=== PATIENT | male | born 1955 | race Caucasian/White ===

== ENCOUNTER 2016-11-22 20:25 | Inpatient (IN) | payer OTHER ==
[~2016-11-22] VITALS: Ht 167.6 cm; Wt 72.9 kg
[2016-11-22 21:38] LABS: BASOPHILS # (AUTO) 0.1 10^3/uL (0.0-0.1); BASOPHILS % (AUTO) 1 % (0-10); EOSINOPHILS # (AUTO) 0.3 10^3/uL (0.0-0.3); EOSINOPHILS % (AUTO) 3 % (0-10); LYMPHOCYTES # (AUTO) 1.6 X 10^3 (1.0-4.0); LYMPHOCYTES % (AUTO) 14 % (12-44); MEAN CORPUSCULAR HEMOGLOBIN 16 PG (25-34); MEAN CORPUSCULAR HGB CONC 27 G/DL (32-36); MEAN CORPUSCULAR VOLUME 58 FL (80-99); MEAN PLATELET VOLUME 9.5 FL (7.4-10.4); MONOCYTES # (AUTO) 0.9 X 10^3 (0.0-1.0); MONOCYTES % (AUTO) 8 % (0-12); NEUTROPHILS # (AUTO) 8.8 X 10^3 (1.8-7.8); NEUTROPHILS % (AUTO) 76 % (42-75); PLATELET COUNT 453 10^3/uL (130-400); RED BLOOD COUNT 3.63 10^6/uL (4.35-5.85); RED CELL DISTRIBUTION WIDTH 21.6 % (10.0-14.5); WHITE BLOOD COUNT 11.7 10^3/uL (4.3-11.0)
--- NOTE | 2016-11-22 21:44 | Diagnostic Imaging Report ---
INDICATION: Difficulty breathing, congestion COMPARISON: None available. TECHNIQUE: Frontal and lateral radiographs of the chest dated November 22, 2016 FINDINGS: The cardiac silhouette is within normal limits. No significant pulmonary vascular congestion. Background interstitial changes are again identified with scarring emphysematous changes within the upper lungs. Mild biapical pleural parenchymal scarring, focal airspace opacities seen within the left lower lobe. The lungs are mild hyperinflated with prominence of anterior clear space. No significant pleural effusion. No pneumothorax. Scattered osseous degenerative changes without acute osseous abnormality. IMPRESSION: Background chronic obstructive pulmonary disease with associated superimposed pneumonia within the left lower lobe. Recommend followup radiographs in 10 to 14 days after appropriate therapy to ensure resolution. Dictated by: Dictated on workstation # [id number]
[2016-11-22 21:57] LABS: ALANINE AMINOTRANSFERASE 13 U/L (0-55); ALBUMIN 3.9 G/DL (3.2-4.5); ANION GAP 12 MMOL/L (5-14); ASPARTATE AMINO TRANSFERASE 16 U/L (5-34); BILIRUBIN,TOTAL 0.3 MG/DL (0.1-1.0); BLOOD UREA NITROGEN 13 MG/DL (7-18); BUN/CREATININE RATIO 13; CALCIUM 8.9 MG/DL (8.5-10.1); CARBON DIOXIDE 20 MMOL/L (21-32); CHLORIDE 108 MMOL/L (98-107); GFR ESTIMATED > 60; GLUCOSE 109 MG/DL (70-105); POTASSIUM 3.7 MMOL/L (3.6-5.0); SODIUM 140 MMOL/L (135-145); TOTAL PROTEIN 7.2 G/DL (6.4-8.2)
[2016-11-22] MEDS ORDERED: PIPERACILLIN SODIUM/TAZOBACTAM 4.5 GM in NORMAL SALINE (BAXTER MINI) 100 ML IV ONE (22:00)
[2016-11-22 22:13] LABS: INR 1.1 (0.8-1.4); PROTHROMBIN TIME PATIENT 14.1 SEC (12.2-14.7)
[2016-11-22] MEDS ORDERED: ACETAMINOPHEN 500 MG TAB (TYLENOL) PO ONE (22:15)
--- NOTE | 2016-11-22 22:16 | ED General ---
General Chief Complaint: Respiratory Problems Stated Complaint: DIFF BREATHING/COUGH/COPD Nursing Triage Note: Pt reports feeling soa, congestion, cough, fever worsening since . had pneumonia approx 1 month ago. former smoker quit one year ago. Nursing Sepsis Screen: Possible Sepsis Risk Source of Information: Patient, Family Exam Limitations: No Limitations History of Present Illness Time Seen by Provider: 21:13 Initial Comments This 61-year-old gentleman who is in town for his mother's presents to the emergency room with myalgia, fever, cough, and dyspnea since . He reports having pneumonia about one month ago and completed treatment. He is a former smoker who quit about one year ago. He denies any nausea, vomiting, diarrhea, urinary changes, hematochezia, melena, or other acute problems. He was noted on CBC to be severely anemic. Patient has COPD. His only blood thinning medication is aspirin. 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 (Reported ) Aspirin 81 Mg Tab.chew 81 MG PO DAILY (Reported) Enalapril Maleate 20 Mg Tablet 20 MG PO HS (Reported) Famotidine 40 Mg Tablet 40 MG PO HS (Reported) Fexofenadine HCl 180 Mg Tablet 180 MG PO DAILY (Reported) Fluticasone/Salmeterol 1 Each Blst.w.dev 1 EACH IH BID (Reported) Guaifenesin 600 Mg Tab.er.12h 600 MG PO BID (Reported) Ibuprofen 200 Mg Capsule 200 MG PO Q6H PRN PRN PAIN (Reported) Omeprazole 40 Mg Capsule.dr 40 MG PO AC (Reported) Simvastatin 10 Mg Tablet 10 MG PO HS (Reported) Constitutional: see HPI EENTM: no symptoms reported Respiratory: see HPI Cardiovascular: no symptoms reported Gastrointestinal: no symptoms reported Genitourinary: no symptoms reported Musculoskeletal: see HPI muscle pain Skin: no symptoms reported Psychiatric/Neurological: No Symptoms Reported Hematologic/Lymphatic: No Symptoms Reported Past Dyngggf-Zmiwla-Sxboec Hx Patient Social History Alcohol Use: Denies Use Recreational Drug Use: Yes (marijuana) Drug of Choice: marijuana Smoking Status: Former Smoker Recent Foreign Travel: No Contact w/Someone Who Travel: No Recent Infectious Disease Expo: No Recent Hopitalizations: No Immunizations Up To Date Tetanus Booster (TDap): Less than 5yrs Date of Pneumonia Vaccine: Sep 23, 2016 Date of Influenza Vaccine: Jul 24, 2016 Seasonal Allergies Seasonal Allergies: No Surgeries HX Surgeries: Yes (cheek bone repair, hernia repair) Respiratory Hx Respiratory Disorders: Yes Respiratory Disorders: Pneumonia, COPD Cardiovascular Hx Cardiac Disorders: Yes Cardiac Disorders: Hypertension Neurological Hx Neurological Disorders: No Reproductive System Hx Reproductive Disorders: No Genitourinary Hx Genitourinary Disorders: No Gastrointestinal Hx Gastrointestinal Disorders: No Musculoskeletal Hx Musculoskeletal Disorders: No HEENT HX ENT Disorders: No Cancer Hx Cancer: No Psychosocial Hx Psychiatric Problems: No Integumentary HX Skin/Integumentary Disorder: No Blood Transfusions Hx Blood Disorders: No Physical Exam Vital Signs Vital Sign - Last 12Hours 11/22/16 11/22/16 11/23/16 11/23/16 20:51 23:00 03:00 03:41 Temp 100.5 Pulse 86 Resp 32 B/P 169/80 Pulse Ox 98 O2 Delivery Room Air O2 Flow Rate 15.00 FiO2 97 Capillary Refill : Less Than 3 Seconds General Appearance: No Apparent Distress WD/WN HEENT: PERRL/EOMI Normal ENT Inspection Pharynx Normal Neck: Normal Inspection Respiratory: Lungs Clear Normal Breath Sounds No Accessory Muscle Use No Respiratory Distress Cardiovascular: Regular Rate, Rhythm No Edema No Murmur Gastrointestinal: Normal Bowel Sounds Non Tender Soft Extremity: Normal Inspection No Pedal Edema Neurologic/Psychiatric: Alert Oriented x3 No Motor/Sensory Deficits 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 Norm as Tested Skin: Normal Color Warm/Dry Progress/Results/Core Measures Results/Orders Lab Results Laboratory Tests Test 11/22/16 21:28 11/22/16 22:51 11/23/16 02:54 11/23/16 03:30 Range/Units Activated Partial Thromboplast Time 38 H 24-35 SEC Alanine Aminotransferase (ALT/SGPT) 13 0-55 U/L Albumin 3.9 3.2-4.5 G/DL Alkaline Phosphatase 74 40-136 U/L Anion Gap 12 5-14 MMOL/L Aspartate Amino Transf (AST/SGOT) 16 5-34 U/L BUN/Creatinine Ratio 13 Basophils # (Auto) 0.1 0.0-0.1 10^3/uL Basophils (%) (Auto) 1 0-10 % Blood Urea Nitrogen 13 7-18 MG/DL Calcium Level 8.9 8.5-10.1 MG/DL Carbon Dioxide Level 20 L 21-32 MMOL/L Chloride Level 108 H 98-107 MMOL/L Creatinine 1.00 0.60-1.30 MG/DL Eosinophils # (Auto) 0.3 0.0-0.3 10^3/uL Eosinophils (%) (Auto) 3 0-10 % Estimat Glomerular Filtration Rate > 60 Glucose Level 109 H 70-105 MG/DL Hematocrit 21 L 40-54 % Hemoglobin 5.8 *L 13.3-17.7 G/DL INR Comment 1.1 0.8-1.4 Lactic Acid Level 1.4 0.5-2.0 MMOL/L Lymphocytes # (Auto) 1.6 1.0-4.0 X 10^3 Lymphocytes (%) (Auto) 14 12-44 % Mean Corpuscular Hemoglobin 16 L 25-34 PG Mean Corpuscular Hemoglobin Concent 27 L 32-36 G/DL Mean Corpuscular Volume 58 L 80-99 FL Mean Platelet Volume 9.5 7.4-10.4 FL Monocytes # (Auto) 0.9 0.0-1.0 X 10^3 Monocytes (%) (Auto) 8 0-12 % Neutrophils # (Auto) 8.8 H 1.8-7.8 X 10^3 Neutrophils (%) (Auto) 76 H 42-75 % Platelet Count 453 H 130-400 10^3/uL Potassium Level 3.7 3.6-5.0 MMOL/L Prothrombin Time 14.1 12.2-14.7 SEC Red Blood Count 3.63 L 4.35-5.85 10^6/uL Red Cell Distribution Width 21.6 H 10.0-14.5 % Sodium Level 140 135-145 MMOL/L Total Bilirubin 0.3 0.1-1.0 MG/DL Total Protein 7.2 6.4-8.2 G/DL White Blood Count 11.7 H 5.1 4.3-11.0 X 10^3 Urine Bacteria NONE /HPF Urine Bilirubin NEGATIVE NEGATIVE Urine Casts NONE /LPF Urine Clarity CLEAR Urine Color YELLOW Urine Crystals NONE /LPF Urine Culture Indicated NO Urine Glucose (UA) NEGATIVE NEGATIVE Urine Ketones NEGATIVE NEGATIVE Urine Leukocyte Esterase NEGATIVE NEGATIVE Urine Mucus NEGATIVE /LPF Urine Nitrite NEGATIVE NEGATIVE Urine Protein NEGATIVE NEGATIVE Urine RBC NONE /HPF Urine RBC (Auto) NEGATIVE NEGATIVE Urine Specific [place] 1.010 L 1.016-1.022 Urine Squamous Epithelial Cells RARE /HPF Urine Urobilinogen NORMAL NORMAL MG/DL Urine WBC NONE /HPF Urine pH 7 5-9 Iggy Test YES-POS Arterial Blood Base Excess -7.6 L -2.5-2.5 MMOL/L Arterial Blood HCO3 17 *L 23-27 MMOL/L Arterial Blood Oxygen Saturation 99 94-100 % Arterial Blood Partial Pressure CO2 31 L 35-45 MMHG Arterial Blood Partial Pressure O2 176 H 79-93 MMHG Arterial Blood Total CO2 17.8 L 21.0-31.0 MMOL/L Arterial Blood pH 7.36 L 7.37-7.43 Blood Gas Inspired Oxygen 15L Blood Gas Patient Temperature 99.2 Blood Gas Puncture Site RIGHT RADIAL Blood Gas Ventilator Setting NO Test 11/23/16 04:55 Range/Units Anion Gap 10 5-14 MMOL/L BUN/Creatinine Ratio 14 Basophils # (Auto) 0.0 0.0-0.1 10^3/uL Basophils (%) (Auto) 0 0-10 % Blood Urea Nitrogen 14 7-18 MG/DL Calcium Level 8.4 L 8.5-10.1 MG/DL Carbon Dioxide Level 19 L 21-32 MMOL/L Chloride Level 112 H 98-107 MMOL/L Creatinine 1.03 0.60-1.30 MG/DL Eosinophils # (Auto) 0.0 0.0-0.3 10^3/uL Eosinophils (%) (Auto) 0 0-10 % Estimat Glomerular Filtration Rate > 60 Glucose Level 97 70-105 MG/DL Hematocrit 22 L 40-54 % Hemoglobin 6.3 *L 13.3-17.7 G/DL Lymphocytes # (Auto) 0.4 L 1.0-4.0 X 10^3 Lymphocytes (%) (Auto) 4 L 12-44 % Mean Corpuscular Hemoglobin 18 L 25-34 PG Mean Corpuscular Hemoglobin Concent 29 L 32-36 G/DL Mean Corpuscular Volume 62 L 80-99 FL Mean Platelet Volume 9.8 7.4-10.4 FL Monocytes # (Auto) 0.1 0.0-1.0 X 10^3 Monocytes (%) (Auto) 1 0-12 % Neutrophils # (Auto) 8.5 H 1.8-7.8 X 10^3 Neutrophils (%) (Auto) 94 H 42-75 % Platelet Count 354 130-400 10^3/uL Potassium Level 3.7 3.6-5.0 MMOL/L Red Blood Count 3.58 L 4.35-5.85 10^6/uL Red Cell Distribution Width 24.7 H 10.0-14.5 % Sodium Level 141 135-145 MMOL/L White Blood Count 9.0 4.3-11.0 10^3/uL My Orders Orders-KAYLEN MARTINEZ MD Cbc With Automated Diff (11/22/16 21:13) Comprehensive Metabolic Panel (11/22/16 21:13) Chest Pa/Lat (2 View) (11/22/16 21:13) Red Cells Leukocytes Reduced (11/22/16 21:52) Type And Screen (11/22/16 21:52) Lactic Acid Analyzer (11/22/16 21:56) Blood Culture (11/22/16 21:56) Sputum Culture (11/22/16 21:56) Ua Culture If Indicated (11/22/16 21:56) Protime With Inr (11/22/16 21:56) Partial Thromboplastin Time (11/22/16 21:56) O2 (11/22/16 21:56) Saline Lock/Iv-Start (11/22/16 21:56) Saline Lock/Iv-Start (11/22/16 21:56) Piperacillin Sodium/Tazobactam (Zosyn Vi (11/22/16 22:00) Influenza A And B Antigens (11/22/16 21:57) Acetaminophen Tablet (Tylenol Tablet) (11/22/16 22:15) Medications Given in ED Current Medications Medications Dose Ordered Sig/Janeth Route Start Time Stop Time Status Last Admin Dose Admin Piperacillin Sod/ Tazobactam Sod/ Sodium Chloride 100 ml @ 200 mls/hr ONCE ONCE IV 11/22/16 22:00 11/22/16 22:30 DC 11/22/16 22:54 200 MLS/HR Vital Signs/I&O Vital Sign - Last 12Hours 11/22/16 11/22/16 11/22/16 11/22/16 20:51 22:58 23:00 23:10 Temp 100.5 101.0 100.5 Pulse 86 93 90 Resp 32 17 B/P 169/80 147/69 Pulse Ox 98 95 96 96 O2 Delivery Room Air Room Air 11/22/16 11/23/16 11/23/16 11/23/16 23:48 00:14 00:17 00:17 Temp 100.3 99.1 99.1 Pulse 78 74 74 Resp 24 B/P 124/63 124/63 Pulse Ox 95 95 O2 Delivery Room Air 11/23/16 11/23/16 11/23/16 11/23/16 00:32 00:32 00:32 01:02 Temp 99.6 99.6 99.6 Pulse 79 79 79 84 Resp 24 24 B/P 108/55 108/55 108/55 Pulse Ox 94 94 94 O2 Delivery Room Air 11/23/16 11/23/16 11/23/16 11/23/16 02:31 02:31 03:00 03:10 Temp 99.2 99.2 102.1 Pulse 146 146 119 109 Resp 40 40 40 20 B/P 150/92 150/92 148/84 Pulse Ox 93 93 93 98 O2 Delivery Room Air Non Rebreather Nasal Cannula O2 Flow Rate 15.00 4.00 11/23/16 11/23/16 11/23/16 11/23/16 03:20 03:29 03:37 03:41 Temp 102.1 101.9 Pulse 106 Resp 20 B/P 120/79 Pulse Ox 98 96 O2 Delivery Nasal Cannula O2 Flow Rate 4.00 2.00 FiO2 97 11/23/16 11/23/16 11/23/16 11/23/16 04:06 04:10 04:50 06:30 Temp 100.1 100.1 100.3 99.9 Pulse 97 98 Resp 24 B/P 97/62 110/67 Pulse Ox 96 97 O2 Delivery Nasal Cannula Nasal Cannula O2 Flow Rate 4.00 4.00 11/23/16 11/23/16 07:00 07:03 Pulse 96 Pulse Ox 92 O2 Flow Rate 2.00 Blood Pressure Mean: 109 Progress Note : Progress Note Blood cultures and lactic acid were drawn. Antibiotic therapy was started with Zosyn for treatment of his left lower lobe pneumonia. 4 units of blood were cross matched and 2 were ordered for transfusion with 2 to hold. Cause of anemia is unknown but is likely related to chronic blood loss or related to iron deficiency given his stable vital signs and extremely low MCV (microcytic anemia). Iron studies were added to his blood work. ECG Initial ECG Impression Date: Nov 22, 2016 Initial ECG Impression Time: 21:25 Initial ECG Rate: 81 Initial ECG Rhythm: Normal Sinus Comment normal sinus rhythm with no ST elevation or depression. No abnormal intervals. LVH. Diagnostic Imaging Diagonstic Imaging: Xray Plain Films/CT/US/NM/MRI: chest Comments Chest x-ray viewed by me and report reviewed. See report below: NAME: [facility] REC#: [id number] PT STATUS: REG ER : 1955 PHYSICIAN: KAYLEN MARTINEZ MD ADMIT DATE: 11/22/16/ER Draft Date of Exam:11/22/16 CHEST PA/LAT (2 VIEW) INDICATION: Difficulty breathing, congestion COMPARISON: None available. TECHNIQUE: Frontal and lateral radiographs of the chest dated November 22, 2016 FINDINGS: The cardiac silhouette is within normal limits. No significant pulmonary vascular congestion. Background interstitial changes are again identified with scarring emphysematous changes within the upper lungs. Mild biapical pleural parenchymal scarring, focal airspace opacities seen within the left lower lobe. The lungs are mild hyperinflated with prominence of anterior clear space. No significant pleural effusion. No pneumothorax. Scattered osseous degenerative changes without acute osseous abnormality. IMPRESSION: Background chronic obstructive pulmonary disease with associated superimposed pneumonia within the left lower lobe. Recommend followup radiographs in 10 to 14 days after appropriate therapy to ensure resolution. Dictated on workstation # [id number] Dict: 11/22/16 2134 Trans: 11/22/16 2143 ROMY [id number] Interpreted by: JAMES NORTH MD Departure Communication Time/Spoke to Admitting Phy: 22:[address] Lin excepts and agrees with admission for treatment of pneumonia and severe anemia. The broad-spectrum antibiotics for healthcare associated pneumonia will be used since patient has had a recent pneumonia treated within the past 2 months. Transfusion of 2 units was 2 units to hold has been ordered. Hemoccult stools have also been ordered. Transfusion was felt appropriate given the patient's COPD and need for good oxygenation. Impression Impression: Primary Impression: Left lower lobe pneumonia Qualified Code: J18.1 - Lobar pneumonia, unspecified organism Additional Impression: Severe anemia Disposition: ADMITTED INPATIENT Condition: Improved Decision to Admit Reason: Admit from ER (General) Decision to Admit/Date: Nov 22, 2016 Time/Decision to Admit Time: 22:00 Departure-Patient Inst. Referrals: NO,LOCAL PHYSICIAN (PCP/Family) Primary Care Physician KAYLEN MARTINEZ MD Nov 22, 2016 22:16 KAYLEN MARTINEZ MD Nov 22, 2016 22:16
[2016-11-22 22:57] LABS: BILIRUBIN,URINE NEGATIVE (NEGATIVE); KETONES,URINE NEGATIVE (NEGATIVE); LEUKOCYTE ESTERASE ,URINE NEGATIVE (NEGATIVE); NITRITE,URINE NEGATIVE (NEGATIVE); PH,URINE 7 (5-9); PROTEIN,URINE NEGATIVE (NEGATIVE); UROBILINOGEN,URINE NORMAL (NORMAL)
[2016-11-22 23:10] VITALS: BP 147/69
[2016-11-22 23:25] LABS: SQUAMOUS EPITHELIAL CELL,UR RARE /HPF
[2016-11-22] MEDS ORDERED: ACETAMINOPHEN 500 MG TAB (TYLENOL) PO PRN (23:30)
[2016-11-22] MEDS ORDERED: VANCOMYCIN 1 GM/NS 250 ML IVPB IV SCH ×2 (23:30)
[2016-11-22] MEDS ORDERED: SODIUM CHLORIDE (ADD-VANTAGE) 0 ML ONE (23:34)
[2016-11-22] MEDS ORDERED: VANCOMYCIN 1 GM ADD-VANTAGE VIAL IV ONE (23:34)
[2016-11-22] MEDS ORDERED: NS IV 500 ML 500 ML IV ONE (23:45)
[2016-11-23] VITALS (20 sets, daily range): BP systolic 97–150; BP diastolic 55–92
[2016-11-23] MEDS: LEVOFLOXACIN 750 MG/150 ML D5W (PRE-MIX) IV SCH ×2 (01:31→23:19)
[2016-11-23] MEDS ORDERED: OMEP40CA36 PO (02:12)
[2016-11-23] MEDS ORDERED: SIMV10TA3 PO (02:12)
[2016-11-23] MEDS ORDERED: ASPI-999 PO (02:20)
[2016-11-23] MEDS ORDERED: ENAL20TA PO (02:20)
[2016-11-23] MEDS ORDERED: RT-ALBUINH IH (02:20)
[2016-11-23] MEDS ORDERED: FLUT1DIS26 IH (02:20)
[2016-11-23] MEDS ORDERED: FAMO40TA6 PO (02:20)
[2016-11-23] MEDS ORDERED: IBUP200C75 PO (02:23)
[2016-11-23] MEDS ORDERED: FEXO-46 PO (02:23)
[2016-11-23] MEDS ORDERED: GUAI600T43 PO (02:23)
[2016-11-23] MEDS ORDERED: RT-ALBUTEROL/IPRATROPIUM 3 ML (DUONEB) VIAL ONE (02:34)
[2016-11-23] MEDS ORDERED: FUROSEMIDE 40 MG/4 ML INJ (LASIX) IVP ONE (02:45)
[2016-11-23] MEDS ORDERED: RT-ALBUTEROL/IPRATROPIUM 3 ML (DUONEB) VIAL INH PRN (03:15)
[2016-11-23] MEDS ORDERED: PIPERACILLIN/TAZO 4.5 GM VIAL (ZOSYN) IV ONE (03:39)
[2016-11-23] MEDS ORDERED: NORMAL SALINE (BAXTER MINI) 100 ML IV ONE (03:39)
[2016-11-23 03:40] LABS: ABG BASE EXCESS -7.6 MMOL/L (-2.5-2.5); ABG OXYGEN SATURATION 99 % (94-100); ABG PCO2 31 MMHG (35-45); ABG PH 7.36 (7.37-7.43); ABG PO2 176 MMHG (79-93); ABG TCO2 17.8 MMOL/L (21.0-31.0)
[2016-11-23 03:45] LABS: ABG HCO3 17 MMOL/L (23-27); ALLENS TEST YES-POS
[2016-11-23] MEDS: RT-ALBUTEROL/IPRATROPIUM 3 ML (DUONEB) VIAL INH SCH ×6 (03:45→22:13)
[2016-11-23 03:46] LABS: PATIENT TEMP 99.2
[2016-11-23] MEDS: PIPER/TAZOB 4.5 GM/NS 50 ML IVPB IV SCH ×6 (04:04→20:56)
[2016-11-23] MEDS: ACETAMINOPHEN 325 MG TABLET/CAPLET (TYLENOL) PO PRN ×2 (04:06→08:00)
[2016-11-23] MEDS ORDERED: FUROSEMIDE 40 MG/4 ML INJ (LASIX) ONE ×2 (04:47→07:55)
[2016-11-23 05:33] LABS: BASOPHILS % (AUTO) 0 % (0-10); EOSINOPHILS % (AUTO) 0 % (0-10); LYMPHOCYTES # (AUTO) 0.4 X 10^3 (1.0-4.0); LYMPHOCYTES % (AUTO) 4 % (12-44); MEAN CORPUSCULAR HEMOGLOBIN 18 PG (25-34); MEAN CORPUSCULAR HGB CONC 29 G/DL (32-36); MEAN CORPUSCULAR VOLUME 62 FL (80-99); MEAN PLATELET VOLUME 9.8 FL (7.4-10.4); MONOCYTES # (AUTO) 0.1 X 10^3 (0.0-1.0); MONOCYTES % (AUTO) 1 % (0-12); NEUTROPHILS # (AUTO) 8.5 X 10^3 (1.8-7.8); NEUTROPHILS % (AUTO) 94 % (42-75); PLATELET COUNT 354 10^3/uL (130-400); RED BLOOD COUNT 3.58 10^6/uL (4.35-5.85); RED CELL DISTRIBUTION WIDTH 24.7 % (10.0-14.5)
[2016-11-23 05:46] LABS: ANION GAP 10 MMOL/L (5-14); BLOOD UREA NITROGEN 14 MG/DL (7-18); BUN/CREATININE RATIO 14; CALCIUM 8.4 MG/DL (8.5-10.1); CARBON DIOXIDE 19 MMOL/L (21-32); CHLORIDE 112 MMOL/L (98-107); CREATININE SERUM 1.03 MG/DL (0.60-1.30); GFR ESTIMATED > 60; GLUCOSE 97 MG/DL (70-105); POTASSIUM 3.7 MMOL/L (3.6-5.0); SODIUM 141 MMOL/L (135-145)
[2016-11-23] MEDS: VANCOMYCIN 1 GM/NS 250 ML IVPB IV SCH ×4 (08:01→21:27)
[2016-11-23] MEDS ORDERED: FUROSEMIDE 40 MG/4 ML INJ (LASIX) IVP NR (09:00)
[2016-11-23] MEDS ORDERED: GUAI-366 PO (09:42)
[2016-11-23] MEDS ORDERED: ASPI-983 PO (09:42)
[2016-11-23] MEDS ORDERED: IBUP-2055 PO (09:42)
[2016-11-23 12:57] LABS: %SAT TOTAL IRON BINDING CAPIC 1 % (15-50); TIBC <442 ug/dL (280-380)
--- NOTE | 2016-11-23 15:20 | History & Physical-Hospitalist ---
HPI History of Present Illness: HPI/Chief Complaint The patient is a 61-year-old white male who was admitted after he presented to the emergency room last night. His complaints were that of cough congestion shortness of breath and fever. He reported that he had had a pneumonia approximately one month ago. He is a stated to be a pack-a-day smoker who quit one year ago. He was in town for his mother's . History suggests that he has something of a bit vagabond as he apparently was last seen by in July somewhere in [place]. In addition to determining an apparent left lower lobe pneumonia he was found to have a hemoglobin of 5.8. He gives no history of GI bleeding, past history of anemia, or black stools. It was clear that the anemia was not helping his respiratory situation. Exam Limitations: no limitations Date Seen 11/23/16 Attending Physician Niels Craig MD PCP No,Local Physician Referring Physician Date of Admission Nov 22, 2016 at 22:12 Home Medications & Allergies Home Medications Reviewed patient Home Medication Reconciliation Form Allergies Coded Allergies: No Known Drug Allergies (Unverified , 11/22/16) Past Jalneet-Sjusai-Bqxhbn Hx Patient Social History Alcohol Use: Denies Use Recreational Drug Use: Yes (marijuana) Drug of Choice: marijuana Smoking Status: Former Smoker Physical Abuse Screen: No Sexual Abuse: No Recent Foreign Travel: No Contact w/other who traveled: No Recent Hopitalizations: No Recent Infectious Disease Expo: No Immunizations Up To Date Tetanus Booster (TDap): Less than 5yrs Date of Pneumonia Vaccine: Sep 23, 2016 Date of Influenza Vaccine: Jul 24, 2016 Seasonal Allergies Seasonal Allergies: No Surgeries HX Surgeries: Yes (cheek bone repair, hernia repair) Respiratory Hx Respiratory Disorders: Yes Cardiovascular Hx Cardiovascular Disorders: Yes Cardiac Disorders: Hypertension Neurological Hx Neurological Disorders: No Reproductive System Hx Reproductive Disorders: No Genitourinary Hx Genitourinary Disorders: No Gastrointestinal Hx Gastrointestinal Disorders: No Gastrointestinal Disorders: Hemorrhoids Musculoskeletal Hx Musculoskeletal Disorders: No HEENT HX ENT Disorders: No Cancer Hx Cancer: No Psychosocial Hx Psychiatric Problems: No Integumentary HX Skin/Integumentary Disorder: No Blood Transfusions Hx Blood Disorders: No Family Medical History Family Hx: Arthritis 19 MOTHER Diabetes mellitus G8 SISTER Myocardial infarction 19 FATHER Visual disorder G8 SISTER Review of Systems Constitutional: see HPI EENTM: no symptoms reported Respiratory: cough dyspnea on exertion phlegm short of breath wheezing Cardiovascular: no symptoms reported Gastrointestinal: no symptoms reported Genitourinary: no symptoms reported Musculoskeletal: no symptoms reported Skin: no symptoms reported Psychiatric/Neurological: No Symptoms Reported Physical Exam Physical Exam Vital Signs Capillary Refill : Less Than 3 Seconds General Appearance: Mild Distress Eyes: Bilateral Eye Normal Inspection HEENT: PERRL/EOMI Normal ENT Inspection Pharynx Normal Neck: Full Range of Motion Normal Inspection Non Tender Supple Carotid Bruit Respiratory: Decreased Breath Sounds Rhonci Gastrointestinal: Normal Bowel Sounds No Organomegaly No Pulsatile Mass Non Tender Soft Back: Normal Inspection No CVA Tenderness No Vertebral Tenderness Extremity: Normal Capillary Refill Normal Inspection Normal Range of Motion Non Tender No Calf Tenderness No Pedal Edema Skin: Normal Color Warm/Dry Lymphatic: No Adenopathy Results Results/Procedures Lab Assessment/Plan Admission Diagnosis 1.severe anemia, microcytic and suggestive of blood loss. 2.left lower lobe pneumonia. 3.COPD Assessment and Plan RBCs TO restore above 8 g of hemoglobin. Surgery consult. Antibiotics and pulmonary toilet Clinical Quality Measures DVT/VTE Risk/Contraindication: Risk Factor Score Per Nursin RFS Level Per Nursing on Admit: 4+=Very High NIELS CRAIG MD Nov 23, 2016 15:20 Skin: Normal Color Warm/Dry Lymphatic: No Adenopathy Results Results/Procedures Lab Laboratory Tests 11/22/16 21:28 11/23/16 03:30 11/23/16 04:55 Assessment/Plan Admission Diagnosis 1.severe anemia, microcytic and suggestive of blood loss. 2.left lower lobe pneumonia. 3.COPD Assessment and Plan RBCs TO restore above 8 g of hemoglobin. Surgery consult. Antibiotics and pulmonary toilet Clinical Quality Measures DVT/VTE Risk/Contraindication: Risk Factor Score Per Nursin RFS Level Per Nursing on Admit: 4+=Very High NIELS CRAIG MD Nov 23, 2016 15:20
[2016-11-23] MEDS ORDERED: GOLYTELY POWDER 4000 ML BTL PO ONE (16:15)
--- NOTE | 2016-11-23 17:09 | Consultation ---
History of Present Illness History of Present Illness Patient Consulted On(armaan/time) 11/23/16 17:03 Date of Admission History of Present Illness Consult from Dr. Lin for anemia. Patient is a 61 year old male who presented to ER not feeling well and having intermittent fever. Patient found to be anemic and left lower lobe pneumonia. Patient reports having history of reflux which is under control with omeprazole and pepcid. Patient has taken Ibuprofen on daily basis for years. Patient has not noticed any blood per rectum, not having dark stools. He has never had any endoscopy. Patient receiving blood transfusion. Patient with no other complaints. Denies sweats chills shorteness of breath or chest pain at this time. Allergies and Home Medications Allergies Coded Allergies: No Known Drug Allergies (Unverified , 11/22/16) Home Medications Albuterol Sulfate 8.5 Gm Hfa.aer.ad 2 PUFF IH QID (Reported) Aspirin 81 Mg Tablet.dr 81 MG PO DAILY (Reported) Enalapril Maleate 20 Mg Tablet 20 MG PO HS (Reported) Famotidine 40 Mg Tablet 40 MG PO HS (Reported) Fexofenadine HCl 180 Mg Tablet 180 MG PO DAILY (Reported) Fluticasone/Salmeterol 1 Each Blst.w.dev 1 PUFF IH BID (Reported) Guaifenesin/Dextromethorphan 1 Each Tab.er.12h 1 TAB PO BID (Reported) Ibuprofen 200 Mg Tablet 800 MG PO DAILY (Reported) TAKES 4 (200MG) TABLETS Omeprazole 40 Mg Capsule.dr 40 MG PO DAILY (Reported) Simvastatin 10 Mg Tablet 10 MG PO HS (Reported) Past Okcyqpm-[place] Hx Patient Social History Alcohol Use: Denies Use Recreational Drug Use: Yes (marijuana) Drug of Choice: marijuana Smoking Status: Former Smoker Recent Foreign Travel: No Contact w/Someone Who Travel: No Recent Infectious Disease Expo: No Recent Hopitalizations: No Physical Abuse Screen: No Sexual Abuse: No Immunizations Up To Date Tetanus Booster (TDap): Less than 5yrs Date of Pneumonia Vaccine: Sep 23, 2016 Date of Influenza Vaccine: Jul 24, 2016 Seasonal Allergies Seasonal Allergies: No Surgeries HX Surgeries: Yes (cheek bone repair, hernia repair) Respiratory Hx Respiratory Disorders: Yes Respiratory Disorders: Pneumonia, COPD Cardiovascular Hx Cardiac Disorders: Yes Cardiac Disorders: Hypertension Neurological Hx Neurological Disorders: No Reproductive System Hx Reproductive Disorders: No Genitourinary Hx Genitourinary Disorders: No Gastrointestinal Hx Gastrointestinal Disorders: No Gastrointestinal Disorders: Hemorrhoids Musculoskeletal Hx Musculoskeletal Disorders: No HEENT HX ENT Disorders: No Cancer Hx Cancer: No Psychosocial Hx Psychiatric Problems: No Integumentary HX Skin/Integumentary Disorder: No Blood Transfusions Hx Blood Disorders: No Family Medical History Significant Family History: No Pertinent Family Hx Family Medial History: Arthritis 19 MOTHER Diabetes mellitus G8 SISTER Myocardial infarction 19 FATHER Visual disorder G8 SISTER Review of Systems-General Constitutional: fever EENTM: no symptoms reported Respiratory: see HPI cough Cardiovascular: no symptoms reported Gastrointestinal: no symptoms reported Genitourinary: no symptoms reported Musculoskeletal: no symptoms reported Skin: no symptoms reported Psychiatric/Neurological: No Symptoms Reported Physical Exam-General Problems Physical Exam Vital Signs Vital Sign - Last 12Hours 11/22/16 11/22/16 11/23/16 11/23/16 20:51 23:00 03:00 03:41 Temp 100.5 Pulse 86 Resp 32 B/P 169/80 Pulse Ox 98 O2 Delivery Room Air O2 Flow Rate 15.00 FiO2 97 Capillary Refill : Less Than 3 Seconds General Appearance: no apparent distress HEENT: normal ENT inspection Neck: supple Respiratory: no respiratory distress (dimished breath sounds) no accessory muscle use Cardiovascular: regular rate, rhythm Gastrointestinal: non tender soft Rectal: deferred Back: normal inspection Extremities: non-tender Neurologic/Psychiatric: alert normal mood/affect oriented x 3 Skin: other (pale in appearance) Lymphatic: no adenopathy Data Review Labs Laboratory Tests 11/22/16 21:28: Activated Partial Thromboplast Time 38H, Alanine Aminotransferase (ALT/SGPT) 13 , Albumin 3.9, Alkaline Phosphatase 74, Anion Gap 12, Aspartate Amino Transf ( AST/SGOT) 16, BUN/Creatinine Ratio 13, Basophils # (Auto) 0.1, Basophils (%) ( Auto) 1, Blood Urea Nitrogen 13, Calcium Level 8.9, Carbon Dioxide Level 20L, Chloride Level 108H, Creatinine 1.00, Eosinophils # (Auto) 0.3, Eosinophils (%) (Auto) 3, Estimat Glomerular Filtration Rate > 60, Glucose Level 109H, Hematocrit 21L, Hemoglobin 5.8*L, INR Comment 1.1, Lactic Acid Level 1.4, Lymphocytes # (Auto) 1.6, Lymphocytes (%) (Auto) 14, Mean Corpuscular Hemoglobin 16L, Mean Corpuscular Hemoglobin Concent 27L, Mean Corpuscular Volume 58L, Mean Platelet Volume 9.5, Monocytes # (Auto) 0.9, Monocytes (%) ( Auto) 8, Neutrophils # (Auto) 8.8H, Neutrophils (%) (Auto) 76H, Platelet Count 453H, Potassium Level 3.7, Prothrombin Time 14.1, Red Blood Count 3.63L, Red Cell Distribution Width 21.6H, Sodium Level 140, Total Bilirubin 0.3, Total Protein 7.2, White Blood Count 11.7H 11/22/16 22:51: Urine Bacteria NONE, Urine Bilirubin NEGATIVE, Urine Casts NONE, Urine Clarity CLEAR, Urine Color YELLOW, Urine Crystals NONE, Urine Culture Indicated NO, Urine Glucose (UA) NEGATIVE, Urine Ketones NEGATIVE, Urine Leukocyte Esterase NEGATIVE, Urine Mucus NEGATIVE, Urine Nitrite NEGATIVE, Urine Protein NEGATIVE, Urine RBC NONE, Urine RBC (Auto) NEGATIVE, Urine Specific [place] 1.010L, Urine Squamous Epithelial Cells RARE, Urine Urobilinogen NORMAL, Urine WBC NONE, Urine pH 7 11/23/16 02:54: Iggy Test YES-POS, Arterial Blood Base Excess -7.6L, Arterial Blood HCO3 17*L, Arterial Blood Oxygen Saturation 99, Arterial Blood Partial Pressure CO2 31L, Arterial Blood Partial Pressure O2 176H, Arterial Blood Total CO2 17.8L, Arterial Blood pH 7.36L, Blood Gas Inspired Oxygen 15L, Blood Gas Patient Temperature 99.2, Blood Gas Puncture Site RIGHT RADIAL, Blood Gas Ventilator Setting NO 11/23/16 03:30: White Blood Count 5.1 11/23/16 04:55: Anion Gap 10, BUN/Creatinine Ratio 14, Basophils # (Auto) 0.0, Basophils (%) ( Auto) 0, Blood Urea Nitrogen 14, Calcium Level 8.4L, Carbon Dioxide Level 19L, Chloride Level 112H, Creatinine 1.03, Eosinophils # (Auto) 0.0, Eosinophils (%) (Auto) 0, Estimat Glomerular Filtration Rate > 60, Glucose Level 97, Hematocrit 22L, Hemoglobin 6.3*L, Lymphocytes # (Auto) 0.4L, Lymphocytes (%) (Auto) 4L, Mean Corpuscular Hemoglobin 18L, Mean Corpuscular Hemoglobin Concent 29L, Mean Corpuscular Volume 62L, Mean Platelet Volume 9.8, Monocytes # (Auto) 0.1, Monocytes (%) (Auto) 1, Neutrophils # (Auto) 8.5H, Neutrophils (%) (Auto) 94H, Platelet Count 354, Potassium Level 3.7, Red Blood Count 3.58L, Red Cell Distribution Width 24.7H, Sodium Level 141, White Blood Count 9.0 11/23/16 14:34: Stool Occult Blood Immunoassay NEGATIVE Assessment/Plan Assessment/Plan Assessment/Plan severe anemia, lll pneumonia discussed with Dr. Lin who would like egd and colonoscopy performed. Discussed with patient risks and benefits of egd and colonoscopy and wishes to proceed. Clear liquid diet go lytely prep being transfused npo after midnight. protonix BID in case of ulcer follow hgb recommended discontinuing Ibuprofen consent for scopes tomorrow. Clinical Quality Measures DVT/VTE Risk/Contraindication: Risk Factor Score Per Nursin RFS Level Per Nursing on Admit: 4+=Very High AONH BEJARANO DO Nov 23, 2016 5:09 pm
[2016-11-23] MEDS: CATHETER FLUSH 10 ML SYR IV PRN (21:28)
[2016-11-23] MEDS: PANTOPRAZOLE 40 MG/10 ML (PROTONIX) VIAL IV SCH (21:28)
[2016-11-24] VITALS: BP 138/76
[2016-11-24] MEDS: RT-ALBUTEROL/IPRATROPIUM 3 ML (DUONEB) VIAL INH SCH ×3 (02:26→11:01)
[2016-11-24] MEDS: PIPER/TAZOB 4.5 GM/NS 50 ML IVPB IV SCH ×2 (03:34)
[2016-11-24 04:00] VITALS: BP 147/16
[2016-11-24 05:08] LABS: BASOPHILS # (AUTO) 0.1 10^3/uL (0.0-0.1); BASOPHILS % (AUTO) 1 % (0-10); EOSINOPHILS # (AUTO) 0.2 10^3/uL (0.0-0.3); EOSINOPHILS % (AUTO) 3 % (0-10); LYMPHOCYTES % (AUTO) 11 % (12-44); MEAN CORPUSCULAR HEMOGLOBIN 21 PG (25-34); MEAN CORPUSCULAR HGB CONC 32 G/DL (32-36); MEAN CORPUSCULAR VOLUME 66 FL (80-99); MEAN PLATELET VOLUME 9.5 FL (7.4-10.4); MONOCYTES % (AUTO) 11 % (0-12); NEUTROPHILS # (AUTO) 6.7 X 10^3 (1.8-7.8); NEUTROPHILS % (AUTO) 74 % (42-75); PLATELET COUNT 304 10^3/uL (130-400); RED BLOOD COUNT 4.68 10^6/uL (4.35-5.85); RED CELL DISTRIBUTION WIDTH 27.9 % (10.0-14.5); WHITE BLOOD COUNT 9.1 10^3/uL (4.3-11.0)
[2016-11-24 05:32] LABS: ALANINE AMINOTRANSFERASE 14 U/L (0-55); ALBUMIN 3.3 G/DL (3.2-4.5); ANION GAP 11 MMOL/L (5-14); ASPARTATE AMINO TRANSFERASE 22 U/L (5-34); BILIRUBIN,TOTAL 1.1 MG/DL (0.1-1.0); BLOOD UREA NITROGEN 14 MG/DL (7-18); BUN/CREATININE RATIO 15; CALCIUM 8.5 MG/DL (8.5-10.1); CARBON DIOXIDE 19 MMOL/L (21-32); CHLORIDE 110 MMOL/L (98-107); CREATININE SERUM 0.94 MG/DL (0.60-1.30); GFR ESTIMATED > 60; GLUCOSE 88 MG/DL (70-105); POTASSIUM 3.4 MMOL/L (3.6-5.0); SODIUM 140 MMOL/L (135-145); TOTAL PROTEIN 6.2 G/DL (6.4-8.2)
[2016-11-24] MEDS ORDERED: TROUGH ORDER-PHARMACY XX NR (07:00)
[2016-11-24 07:40] LABS: UIBC 432 ug/dL (55-450)
[2016-11-24] MEDS: CATHETER FLUSH 10 ML SYR IV PRN ×2 (07:40→13:28)
[2016-11-24] MEDS: PANTOPRAZOLE 40 MG/10 ML (PROTONIX) VIAL IV SCH (07:40)
[2016-11-24] MEDS ORDERED: VANCOMYCIN INJECTION 1,250 MG in NS (IVPB) 250 ML IV SCH (08:00)
[2016-11-24] MEDS ORDERED: PROPOFOL INJECTION 50 ML IV ONE (08:13)
[2016-11-24] MEDS ORDERED: MIDAZOLAM 2 MG/2 ML (VERSED) VIAL ONE (08:13)
--- NOTE | 2016-11-24 08:18 | Progress Note ---
Subjective Subjective/Events-last exam Hgb up to 9.9 with transfusion. Finished bowel prep. No new complaints. NPO. Nausea no emesis. Objective Exam Vital Signs Date Time Temp Pulse Resp B/P Pulse Ox O2 Delivery O2 Flow Rate FiO2 11/24/16 07:00 93 2.00 11/24/16 04:00 99.9 90 20 147/16 94 Nasal Cannula 3.00 11/24/16 02:26 95 2.00 11/24/16 01:00 92 11/24/16 00:00 98.9 90 20 138/76 97 Nasal Cannula 3.00 11/23/16 23:06 98.9 90 138/76 11/23/16 22:13 97 2.00 11/23/16 20:43 99.8 92 133/72 11/23/16 20:28 100.0 84 125/71 11/23/16 20:10 96 Nasal Cannula 2.00 11/23/16 20:00 98.5 94 18 137/73 96 Nasal Cannula 4.00 11/23/16 19:55 98.5 94 137/73 2.00 11/23/16 19:00 94 11/23/16 18:45 99 2.00 11/23/16 16:59 98.4 86 16 128/68 97 2.00 11/23/16 16:44 98.6 89 16 131/67 97 2.00 11/23/16 16:07 97.8 81 16 114/65 96 Nasal Cannula 4.00 11/23/16 14:47 96 2.00 11/23/16 13:00 78 11/23/16 12:05 98.0 88 18 Right Arm 98 2.00 11/23/16 12:05 98.0 88 18 125/74 98 2.00 11/23/16 12:00 98.1 88 18 125/76 96 Nasal Cannula 4.00 11/23/16 10:20 92 2.00 11/23/16 09:00 98.9 89 20 127/69 98 2.00 11/23/16 08:45 99.2 89 20 150/83 96 I & O 11/24/16 06:59 Intake Total 2160 ml Output Total 900 ml Balance 1260 ml Capillary Refill : Less Than 3 Seconds General Appearance: Mild Distress HEENT: PERRL/EOMI Normal ENT Inspection Pharynx Normal Neck: Full Range of Motion Normal Inspection Non Tender Supple Carotid Bruit Respiratory: Decreased Breath Sounds Rhonci Cardiovascular: Regular Rate, Rhythm No Edema No Murmur Gastrointestinal: non tender soft Extremity: Normal Capillary Refill Normal Inspection Normal Range of Motion Non Tender No Calf Tenderness No Pedal Edema Neurologic/Psychiatric: Alert Oriented x3 No Motor/Sensory Deficits Normal Mood/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 laboratory 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 specialist II-XII Norm as Tested Skin: Normal Color Warm/Dry Lymphatic: No Adenopathy Results Lab Laboratory Tests 11/23/16 14:34: Stool Occult Blood Immunoassay NEGATIVE 11/23/16 23:45: Stool Occult Blood Immunoassay NEGATIVE 11/24/16 04:50: Alanine Aminotransferase (ALT/SGPT) 14, Albumin 3.3, Alkaline Phosphatase 67, Anion Gap 11, Aspartate Amino Transf (AST/SGOT) 22, BUN/Creatinine Ratio 15, Basophils # (Auto) 0.1, Basophils (%) (Auto) 1, Blood Urea Nitrogen 14, Calcium Level 8.5, Carbon Dioxide Level 19L, Chloride Level 110H, Creatinine 0.94, Eosinophils # (Auto) 0.2, Eosinophils (%) (Auto) 3, Estimat Glomerular Filtration Rate > 60, Glucose Level 88, Hematocrit 31L, Hemoglobin 9.9#L, Lymphocytes # (Auto) 1.0, Lymphocytes (%) (Auto) 11L, Mean Corpuscular Hemoglobin 21L, Mean Corpuscular Hemoglobin Concent 32, Mean Corpuscular Volume 66L, Mean Platelet Volume 9.5, Monocytes # (Auto) 1.0, Monocytes (%) (Auto) 11, Neutrophils # (Auto) 6.7, Neutrophils (%) (Auto) 74, Platelet Count 304, Potassium Level 3.4L, Red Blood Count 4.68, Red Cell Distribution Width 27.9H, Sodium Level 140, Total Bilirubin 1.1H, Total Protein 6.2L, White Blood Count 9.1 11/24/16 07:14: Vancomycin Level Trough 13.1 Microbiology 11/22/16 Blood Culture - Preliminary, Resulted No growth 11/23/16 Influenza Types A,B Antigen ([facility]) - Final, Complete Assessment/Plan Assessment/Plan Assessment/Plan severe anemia, lll pneumonia discussed with Dr. Lin who would like egd and colonoscopy performed. Discussed with patient risks and benefits of egd and colonoscopy and wishes to proceed. Clear liquid diet go lytely prep being transfused npo after midnight. protonix BID in case of ulcer follow hgb recommended discontinuing Ibuprofen consent for scopes tomorrow. Clinical Quality Measures DVT/VTE Risk/Contraindication: Risk Factor Score Per Nursin RFS Level Per Nursing on Admit: 4+=Very High OANH BEJARANO DO Nov 24, 2016 8:18 am
[2016-11-24] MEDS ORDERED: NS IV 500 ML 500 ML ONE (08:32)
[2016-11-24] MEDS ORDERED: HURRICAINE EXT TUBE (BENZOCAINE) XX ONE (08:45)
[2016-11-24] MEDS ORDERED: NS IV 500 ML 500 ML IV ONE (08:45)
[2016-11-24] MEDS ORDERED: HURRICAINE EXT TUBE (BENZOCAINE) ONE (09:19)
[2016-11-24 09:30] VITALS: BP 174/80
--- NOTE | 2016-11-24 10:06 | Progress Note-Post Operative ---
Post-Operative Progess Note Pre-Operative Diagnosis severe anemia Post-Operative Diagnosis hiatal hernia, av malformations, swollen irritated internal hemorrhoids, no active bleeding Post-Op Procedure Note Date of Procedure: Nov 24, 2016 Name of Procedure: egd colonoscopy Procedure Note/Findings see note Anesthesia Type per tie knitter helper Estimated blood loss (mL): none Specimen(s) collected none OANH BEJARANO DO Nov 24, 2016 10:06
--- NOTE | 2016-11-24 10:36 | Discharge Summary-Hospitalist ---
Diagnosis/Chief Complaint Date of Admission Nov 22, 2016 at 22:12 Date of Discharge Admission Diagnosis 1.severe anemia, microcytic and suggestive of blood loss. 2.left lower lobe pneumonia. 3.COPD Discharge Diagnosis 1.severe anemia, microcytic and suggestive of blood loss s/p 4 units of blood and EGD showed gastritis 2.left lower lobe pneumonia? w/h/o recurrent pneumonia 3.COPD Reason Hospital Visit/Course The patient is a 61-year-old white male who was admitted after he presented to the emergency room last night. His complaints were that of cough congestion shortness of breath and fever. He reported that he had had a pneumonia approximately one month ago. He is a stated to pack-a-day smoker who quit one year ago. He was in town for his mother's . History suggests that he has something of a bit vagabond as he apparently was last seen by in July somewhere in [place]. In addition to determining an apparent left lower lobe pneumonia he was found to have a hemoglobin of 5.8. He gives no history of GI bleeding, past history of anemia, or black stools. It was clear that the anemia was not helping his respiratory situation. Notes from 11/24/2016: Chart Review: Max fever 99.9 WBC 9.1 Hgb 9.9 from 6.3 after 4 units transfused Pt on Levaquin, Zosyn and Vanc empirically Patient Interview: Pt has already undergone procedure today Pt's PCP is Dr. Juan Carlos Garcia in [place], [place]. Pt sees PCP every 6 months. Pt is from [place] and was only visiting [place]. Physical exam was stable. Pt states that he feels fatigued. Dr. Leigh informs pt that transfusions were successful in raising pt's Hgb levels. Pt would like to DC to home when able. Pt will likely stay with sister in [place] for a few days after DC before returning to [place]. encourages pt to follow-up with PCP. Pt denies having pain currently. Pt states that home meds have not been reconciled. Pt has been told to reduce Ibuprofen intake. Max fever 99.9, pleasant, oriented 3, family at bedside, EGD and colonoscopy performed and doing well RRR, CTAB no rales noted No edema Plan: Reconciled home meds. Regular diet PT Repeat CXR to assure on major infiltrate Plan for DC today if pt stable Scribed by Gurwinder Pastor under the direct supervision of Dr. Leigh. Discharge Summary Discharge Physical Examination Allergies: Coded Allergies: No Known Drug Allergies (Unverified , 11/22/16) Vitals & I&Os Vital Signs Date Time Temp Pulse Resp B/P Pulse Ox O2 Delivery O2 Flow Rate FiO2 11/24/16 14:20 88 20 154/64 95 11/24/16 11:02 2.00 11/24/16 09:30 99.2 Nasal Cannula 11/23/16 03:41 97 Hospital Course Labs (last 24 hrs) Microbiology 11/22/16 Blood Culture - Preliminary, Resulted No growth 11/23/16 Influenza Types A,B Antigen ([facility]) - Final, Complete Pending Labs Discharge Home Medications: Active Scripts Active Cefdinir 300 Mg Capsule 300 Mg PO BID Carafate (Sucralfate) 1 Gm Tablet 1 Gm PO ACHS Reported Mucinex Dm ER 600-30 mg Tablet (Guaifenesin/Dextromethorphan) 1 Each Tab.er.12h 1 Tab PO BID Fexofenadine HCl 180 Mg Tablet 180 Mg PO DAILY Proair Hfa (Albuterol Sulfate) 8.5 Gm Hfa.aer.ad 2 Puff IH QID Advair 250-50 Diskus (Fluticasone/Salmeterol) 1 Each Blst.w.dev 1 Puff IH BID Enalapril Maleate 20 Mg Tablet 20 Mg PO HS Famotidine 40 Mg Tablet 40 Mg PO HS Omeprazole 40 Mg Capsule.dr 40 Mg PO DAILY Simvastatin 10 Mg Tablet 10 Mg PO HS Instructions to patient/family Please see electonic discharge instructions given to patient. Clinical Quality Measures DVT/VTE Risk/Contraindication: Risk Factor Score Per Nursin RFS Level Per Nursing on Admit: 4+=Very High REJI LEIGH DO Nov 24, 2016 10:36 Discharge Home Medications: Active Scripts Active Reported Mucinex Dm ER 600-30 mg Tablet (Guaifenesin/Dextromethorphan) 1 Each Tab.er.12h 1 Tab PO BID Ibuprofen 200 Mg Tablet 800 Mg PO DAILY TAKES 4 (200MG) TABLETS Aspirin EC (Aspirin) 81 Mg Tablet.dr 81 Mg PO DAILY Fexofenadine HCl 180 Mg Tablet 180 Mg PO DAILY Proair Hfa (Albuterol Sulfate) 8.5 Gm Hfa.aer.ad 2 Puff IH QID Advair 250-50 Diskus (Fluticasone/Salmeterol) 1 Each Blst.w.dev 1 Puff IH BID Enalapril Maleate 20 Mg Tablet 20 Mg PO HS Famotidine 40 Mg Tablet 40 Mg PO HS Omeprazole 40 Mg Capsule.dr 40 Mg PO DAILY Simvastatin 10 Mg Tablet 10 Mg PO HS Instructions to patient/family Please see electonic discharge instructions given to patient. Clinical Quality Measures DVT/VTE Risk/Contraindication: Risk Factor Score Per Nursin RFS Level Per Nursing on Admit: 4+=Very High REJI LEIGH DO Nov 24, 2016 10:36
[2016-11-24] MEDS ORDERED: PANTOPRAZOLE 40 MG (PROTONIX) TAB PO SCH (11:00)
[2016-11-24] MEDS ORDERED: CEFD300C3 PO (11:11)
[2016-11-24] MEDS ORDERED: SUCR1TAB36 PO (11:11)
--- NOTE | 2016-11-24 11:12 | Discharge Instructions ---
Discharge Instructions Discharge Medications New, Converted or Re-Newed RX: Transmitted to Pharmacy New Medications: Cefdinir (Cefdinir) 300 Mg Capsule 300 MG PO BID #10 CAP Sucralfate (Carafate) 1 Gm Tablet 1 GM PO ACHS #120 TAB Continued Medications: Albuterol Sulfate (Proair Hfa) 8.5 Gm Hfa.aer.ad 2 PUFF IH QID INHALER Enalapril Maleate (Enalapril Maleate) 20 Mg Tablet 20 MG PO HS TAB Famotidine (Famotidine) 40 Mg Tablet 40 MG PO HS TAB Fexofenadine HCl (Fexofenadine HCl) 180 Mg Tablet 180 MG PO DAILY TAB Fluticasone/Salmeterol (Advair 250-50 Diskus) 1 Each Blst.w.dev 1 PUFF IH BID INHALER Guaifenesin/Dextromethorphan (Mucinex Dm ER 600-30 mg Tablet) 1 Each Tab.er.12h 1 TAB PO BID TAB Omeprazole (Omeprazole) 40 Mg Capsule.dr 40 MG PO DAILY CAP Simvastatin (Simvastatin) 10 Mg Tablet 10 MG PO HS TAB Discontinued Medications: Aspirin (Aspirin EC) 81 Mg Tablet.dr 81 MG PO DAILY TAB Ibuprofen (Ibuprofen) 200 Mg Tablet 800 MG PO DAILY TAKES 4 (200MG) TABLETS TAB Patient Instructions Goal/Follow Up Appt: Obtain close follow-up with primary care provider for recheck of hemoglobin and fully evaluation of lung status Activity & Diet Discharge Diet: No Restrictions Activity as Tolerated: Yes REJI JOHNSON DO Nov 24, 2016 11:12
[2016-11-24] MEDS ORDERED: KCL 20 MEQ TAB (K-DUR) PO NR (11:15)
[2016-11-24] MEDS ORDERED: PIPER/TAZOB 4.5 GM/NS 50 ML IVPB IV SCH ×2 (12:00)
[2016-11-24] MEDS ORDERED: RT-ALBUTEROL SULF 2.5 MG/3 ML PRE-MIX VIAL INH SCH (12:15)
[2016-11-24] MEDS ORDERED: ONDANSETRON 4 MG/2 ML (SDV) Z0FRAN IV PRN (12:30)
[2016-11-24] MEDS ORDERED: CATHETER FLUSH 10 ML SYR IV PRN (12:30)
[2016-11-24] MEDS ORDERED: D5 NS 1000 ML IV SOLUTION 1,000 ML IV SCH (12:30)
--- NOTE | 2016-11-24 13:31 | Diagnostic Imaging Report ---
INDICATION: Pneumonia. EXAMINATION: PA and lateral chest. FINDINGS: There is infiltrate present at the left lung base. There are small bilateral pleural effusions. There are emphysematous changes in the upper lung regions. IMPRESSION: COPD. There is infiltrate in the left lung base which appears to have increased from 2 days earlier. There are small pleural effusions. The left effusion has increased slightly. Dictated by: Dictated on workstation # [id number]
[2016-11-24 14:20] VITALS: BP 154/64
[2016-11-24] MEDS ORDERED: RT-ADVAIR HFA 115/21 MCG PER PUFF IH SCH (20:00)
[2016-11-24] MEDS ORDERED: ENALAPRIL 10 MG (VASOTEC) TAB PO SCH (21:00)
[2016-11-24] MEDS ORDERED: FAMOTIDINE 20 MG (PEPCID) TABLET PO SCH (21:00)
[2016-11-24] MEDS ORDERED: NON-FORMULARY MEDICATION 1 EA EA (Guaifenesin/Dextromethorphan (Mucinex Dm ER 600-30 mg Ta PO SCH (21:00)
[2016-11-24] MEDS ORDERED: SIMvastatin 10 MG (ZOCOR) TAB PO SCH (21:00)
[2016-11-25] MEDS ORDERED: TROUGH ORDER-PHARMACY XX NR (07:00)
[2016-11-25] MEDS ORDERED: PANTOPRAZOLE 40 MG (PROTONIX) TAB PO SCH (07:00)
[2016-11-25] MEDS ORDERED: LORATADINE (CLARITIN) 10 MG TAB PO SCH (09:00)
--- NOTE | 2016-11-25 11:04 | OPERATIVE REPORT ---
PROCEDURE PHYSICIAN: OANH BEJARANO DATE OF PROCEDURE: 11/24/2016 PREOPERATIVE DIAGNOSIS: Severe anemia. POSTOPERATIVE DIAGNOSES: 1. Hiatal hernia. 2. AV malformations of the colon. 3. Swollen irritated internal hemorrhoids. No active bleeding. PROCEDURE: 1. EGD. 2. Colonoscopy. SURGEON: Kalyn ANESTHESIA: Per PLASTIC TILE LAYER. ESTIMATED BLOOD LOSS: None. COMPLICATIONS: None. INDICATIONS: The patient is a 61-year-old male who was found to be severely anemic and admitted for left lower lobe pneumonia and COPD. The patient was transfused and hemoglobin now 9.9. The patient was explained risk and benefits of procedures and wished to proceed with procedure. Consent was signed on the chart. PROCEDURE: The patient was taken to the endoscopy suite, placed in left lateral recumbent position. Timeout was performed. The scope was then inserted in the mouth, down the esophagus, stomach and into the duodenum without difficulty there were no polyps, masses or ulcerations within the duodenum. The scope was brought back into the stomach where it was further insufflated. There were no erythematous changes. No polyps, masses or ulcerations. The scope was retroflexed noting a small to moderate sized hiatal hernia. There was no other pathology noted. The scope was returned to its normal position and slowly withdrawn. There were no polyps, masses, ulcerations or erythematous changes present within the esophagus. There is no active bleeding within the upper GI tract. The scope was slowly retracted until completely removed. COLONOSCOPY: Digital rectal exam was performed demonstrating some boggy feeling hemorrhoids. Internal hemorrhoids. There were no polyps, masses or ulcerations. The scope was inserted in the rectum and advanced all of the way to the cecum with minimal difficulty. Prep was adequate with irrigation and suction. The scope was then slowly retracted. There were no polyps, masses or ulcerations within the cecum, ascending colon, transverse colon, descending colon, and sigmoid colon. In the rectum, the scope was also retroflexed just noting the slightly inflamed internal hemorrhoids. The scope was returned to its normal position and slowly withdrawn until completely removed. Throughout the descending and sigmoid colon the presence of some small AV malformations. There is no active bleeding noted in the entire colon. The patient tolerated the procedure well without any complications. RECOMMENDATIONS: The patient will need repeat colonoscopy in 10 years, unless family history of colon cancer. If he has any problems prior to that, such as bleeding or drop in hemoglobin again, we would recommend repeating. If he has family history of colon cancer would repeat the scope in 5 years. Job ID: [id number] Dictated Date: 11/24/2016 10:14:43 Phone Operator Date: 11/25/2016 10:56:10 / cutris
== END 2016-11-24 14:20 | disposition home or self-care (01) | DRG 190 ==
LOC: ER 20:29 → 4TH 22:12
PROVIDERS: ADMIT Internal Medicine; ATTEND Internal Medicine
PROC: 0DJ08ZZ Inspection of Upper Intestinal Tract, Via Natural or Artificial Opening Endoscopic (ICD-10-PCS; principal; 2016-11-24 12:15)
PROC: 0DJD8ZZ Inspection of Lower Intestinal Tract, Via Natural or Artificial Opening Endoscopic (ICD-10-PCS; 2016-11-24 12:15)
DX: J44.0 Chronic obstructive pulmonary disease with (acute) lower respiratory infection (principal); J18.1 Lobar pneumonia, unspecified organism; D50.0 Iron deficiency anemia secondary to blood loss (chronic); I10 Essential (primary) hypertension; Z87.891 Personal history of nicotine dependence; K44.9 Diaphragmatic hernia without obstruction or gangrene; K64.8 Other hemorrhoids
CPT/HCPCS: 36415; 71020; 80048; 80053; 80202; 81000; 82274; 82728; 82805; 83540; 83605; 85025; 85610; 85730; 86850; 86900; 86901; 86920; 87040; 87804; 93005; 94640; 94760; 96374